=== PATIENT | male | born 1960 | race Native Hawaiian/Other Pacific Islander ===

== ENCOUNTER 2018-03-16 14:00 | Outpatient (CLI) | payer BC | END 2018-03-16 20:59 | disposition home or self-care (01) | LOC: RAD 14:00 | DX: M54.2 Cervicalgia (principal) ==

== ENCOUNTER 2020-01-26 08:04 | Outpatient (CLI) | payer BC, OTHER ==
[~2020-01-26] VITALS: Ht 162.6 cm; Wt 117.5 kg
[2020-01-26 09:06] LABS: PLATELET COUNT 136 K/uL (142-355)
[2020-01-26 09:39] LABS: POTASSIUM 3.8 mmol/L (3.6-5.2)
[2020-01-26 11:35] VITALS: BP 153/77; TEMP 98.5
== END 2020-01-26 11:00 | disposition home or self-care (01) ==
LOC: INF 08:04
PROVIDERS: ATTEND Family Medicine
DX: U07.1 COVID-19 (principal)
CPT/HCPCS: 80053; 85027; 96365; Q0239

== ENCOUNTER 2020-12-02 11:46 | Outpatient (CLI) | payer BC, OTHER ==
[2020-12-02 12:18] LABS: PLATELET COUNT 144 K/uL (142-355)
[2020-12-02 12:23] LABS: POTASSIUM 4.1 mmol/L (3.6-5.2)
== END 2020-12-02 19:34 | disposition home or self-care (01) ==
LOC: LABW 11:46
PROVIDERS: ATTEND Nurse Practitioner Family
DX: Z20.822 Contact with and (suspected) exposure to COVID-19 (principal)
CPT/HCPCS: 36415; 80053; 82728; 85027; 85379; 86140

== ENCOUNTER 2021-03-15 10:30 | Outpatient (CLI) | payer BC ==
[2021-03-15 10:57] LABS: PLATELET COUNT 180 K/uL (142-355)
[2021-03-15 11:13] LABS: POTASSIUM 4.1 mmol/L (3.6-5.2)
== END 2021-03-15 21:21 | disposition home or self-care (01) ==
LOC: US 10:30
PROVIDERS: ATTEND Internal Medicine Nephrology
DX: Q61.2 Polycystic kidney, adult type (principal)
CPT/HCPCS: 36415; 80053; 81000; 82570; 84155; 85027

== ENCOUNTER 2021-04-09 13:30 | Outpatient (CLI) | payer BC | END 2021-04-09 18:56 | disposition home or self-care (01) | LOC: MRI 13:30 | PROVIDERS: ATTEND Internal Medicine Nephrology | DX: G44.229 Chronic tension-type headache, not intractable (principal) ==